=== PATIENT | male | born 1960 | race Caucasian/White ===

== ENCOUNTER 2024-04-03 12:45 | Emergency (ER) | payer OTHER, SELFPAY ==
[2024-04-03 12:52] VITALS: BP 110/77; PULSE 120; RESP 24; TEMP 37.2; O2SAT 98
--- NOTE | 2024-04-03 14:33 | ED.GENADUL_ITS ---
Discharge Plan Disposition Patient Disposition: Home Condition: Improving Discharge Details Clinical Impression: Hematuria, Inguinal hernia Primary Care Provider: Ulysses Melendrez ED Provider: Ray Godinez Home Meds and New Rx's Prescriptions: New cefpodoxime 100 mg tablet 200 mg PO BID 7 Days Qty: 28 0RF Rx Instructions: must administer with a meal/food No Action Creon 6,000-19,000 -30,000 unit capsule,delayed release(DR/EC) 1 cap PO .with meals pantoprazole [Protonix] 40 mg tablet,delayed release (DR/EC) 40 mg PO DAILY tamsulosin [Flomax] 0.4 mg capsule 0.4 mg PO QHS Discharge Instructions Instructions: Inguinal Hernia (ED), Hematuria (ED) Additional Instructions: Please follow-up with urology appointment. Please follow-up with general surgery. If you are unable to get an appointment at [facility] we will gladly arrange for follow-up. Return to the emergency department for any worsening symptoms HPI General Date/Time Provider Initiated Documentation: 04/03/24 14:01 . HPI Narrative: 63-year-old male history of recurrent hematuria and UTIs presents with worsening suprapubic discomfort hematuria passing clots difficulty urinating and persistent left inguinal hernia over the past several days. Has been on Bactrim for 5 days without improvement of urologic symptomatology. Related Data Home Medications Medication Instructions Recorded Confirmed cefpodoxime 100 mg tablet 200 mg (2 x 100 mg) PO BID 7 days 04/03/24 #28 tabs [id number] 1 cap PO .with meals 04/03/24 04/03/24 6,000-19,000-30,000 unit capsule,delayed rel (Creon) pantoprazole 40 mg tablet,delayed 40 mg PO DAILY 04/03/24 04/03/24 release (Protonix) tamsulosin 0.4 mg capsule (Flomax) 0.4 mg PO QHS 04/03/24 04/03/24 Previous Rx's Medication Instructions Recorded cefpodoxime 100 mg tablet 200 mg (2 x 100 mg) PO BID 7 days 04/03/24 #28 tabs Allergies Allergy/AdvReac Type Severity Reaction Status Date / Time No Known Allergies Allergy Verified 04/03/24 12:56 General Stated Complaint: Urinary JM: 3 Review of Systems Narrative: Review of Systems Constitutional: negative Eyes: negative ENT: negative Cardiovascular: negative Respiratory: negative Gastrointestinal: negative : Hematuria, difficulty urinating, inguinal hernia Musculoskeletal: negative Skin: negative Neurologic: negative Psych: negative Exam Narrative Exam Narrative: Physical Examination General: alert, awake, cooperative, uncomfortable appearing HEENT: normocephalic, atraumatic; PERRL, EOM intact, conjunctiva normal; no nasal discharge; moist mucous membranes, oral and pharyngeal mucosa normal, tolerating secretions Neck: supple, trachea midline; full ROM Chest: normal to inspection Respiratory: normal respiratory effort, speaking in full sentences, clear to auscultation, no wheezing, rales or rhonchi Cardiac: regular rate, regular rhythm, S1S2 intact, no murmurs rubs or gallops GI: abdomen soft, non-tender, non-distended; no palpable mass or hepatosplenomegaly : Indirect left inguinal hernia into the scrotal sac soft nontender not indurated no overlying skin changes partially reducible Skin: no lesions, rashes or trauma appreciated Neuro: AAOx3, normal speech, moving all extremities Psych: Appropriate mood and affect Course Vital Signs Vital signs: Vital Signs Temperature 37.2 C 04/03/24 12:52 Pulse 120 H 04/03/24 12:52 Respiratory Rate 24 04/03/24 12:52 Blood Pressure 110/77 04/03/24 12:52 Pulse Oximetry 98 04/03/24 12:52 Temperature 37.2 C 04/03/24 12:52 Temperature Source Temporal Artery Scan 04/03/24 12:52 Pulse 120 H 04/03/24 12:52 Respiratory Rate 24 04/03/24 12:52 Respiratory Effort Normal, Non-Labored 04/03/24 12:55 Blood Pressure 110/77 04/03/24 12:52 Blood Pressure Position Sitting 04/03/24 12:52 Pulse Oximetry 98 04/03/24 12:52 Oxygen Delivery Method Room Air 04/03/24 12:52 Oxygen Flow Rate 0 04/03/24 12:52 Pain Level 10 04/03/24 12:52 Medical Decision Making 63-year-old male history of recurrent UTIs, hematuria, left inguinal hernia presents with suprapubic fullness difficulty urinating passing blood clots now with back pressure bilaterally, afebrile nontoxic no nausea no vomiting, tachycardia likely related to pain, patient has been straining to urinate and has noticed worsening left inguinal hernia, indirect left inguinal hernia into the left hemiscrotum, soft partially reducible, patient having normal bowel movements passing gas normally no vomiting. High clinical suspicion for urinary retention in the setting of hematuria consider enlarged prostate versus bladder cancer versus prostatitis, patient has had multiple CT scans at [facility] over the last couple of weeks, will place Ennis catheter to relieve outflow obstruction, back pain likely related to hydronephrosis in the setting of chronic urinary obstruction lower suspicion for pyelonephritis. Reassessment after Ennis catheter placement if large amount of hematuria will irrigate, patient will likely be given close follow-up with urology and general surgery 16: 45 patient resting more comfortably after bladder decompression. Transition patient to cefpodoxime given nitrate positive leuk positive urine despite being on Bactrim over the past 5 days. Patient be given urologic referral to Dr. Prieto. Patient would like to follow-up at [facility] with his general surgeon regarding his hernia given strict return precautions for any worsening symptoms. Quality:SDOH Health Related Social Needs: No Data to Display PFSH All Active Problems (Updated 04/03/24 @ 16:48 by Ray Godinez MD) Inguinal hernia (Acute) Hematuria (Acute) Social History Smoking/Tobacco Use Status: Current every day Tobacco Type: cigarettes Smoking risk assessment performed?: Yes Alcohol Intake: never Drug use: Never Substance use type: does not use
[2024-04-03 14:53] LABS: Bilirubin Negative (Negative); Blood Moderate (Negative); Clarity Cloudy (Clear); Glucose Negative (Negative); Ketones 40 mg/dL (Negative); Leukocyte Esterase Large (Negative); Nitrite Positive (Negative); Urobilinogen 0.2 mg/dL (Up to 0.2); pH 6.5 (5-8)
[2024-04-03 15:01] LABS: C & S Indicated? Yes; WBC >50 HPF (0-5)
[2024-04-03] MEDS: Lidocaine 2% Jelly 6 ML SYR (15:02)
[2024-04-03 15:22] LABS: Abs Immature Grans 0.02 10^3/uL (0.0-0.06); Absolute Basophil Count 0.04 10^3/uL (0.0-0.2); Absolute Eosinophil Count 0.02 10^3/uL (0.0-0.7); Absolute Lymphocyte Count 0.72 10^3/uL (1.2-3.4); Absolute Monocyte Count 0.55 10^3/uL (0.1-0.8); Basophils % 0.5 %; Eosinophils % 0.3 %; HCT 39.5 % (40.0-50.0); HGB 13.2 g/dL (13.5-17.5); Immature Grans % 0.3 %; Lymphocytes % 9.4 %; MCH 31.1 pg (27.0-33.0); MCHC 33.4 % (32.0-36.0); MCV 93 fL (80-95); MPV 10.6 fL (8.0-11.0); Monocytes % 7.2 %; Neutrophils % 82.3 %; Platelet Count 132 10^3/uL (130-400); RBC 4.25 10^6/uL (4.36-5.78); RDW 12.5 % (11.8-14.1); RDW-SD 42.8 fL; WBC 7.65 10^3/uL (4.4-10.8)
[2024-04-03 15:38] LABS: ALT 19 U/L (16-63); AST 16 U/L (15-37); Albumin 3.2 g/dL (3.4-5.0); Alkaline Phosphatase 96 U/L (46-116); Anion Gap 10.8 mmol/L (3-11); BUN 15 mg/dL (7-18); Bilirubin, Total 0.4 mg/dL (0.2-1.0); CO2 25.2 mmol/L (21.0-32.0); Calcium 8.9 mg/dL (8.5-10.1); Chloride 102 mmol/L (98-107); Estimated GFR 84.05 (mL/min/1.73m2); Glucose 98 mg/dL (74-106); Potassium 3.9 mmol/L (3.5-5.1); Sodium 138 mmol/L (136-145); Total Protein 7.4 g/dL (6.4-8.2)
[2024-04-03] MEDS: Ketorolac 15 MG/ML VIAL IVP (15:53)
[2024-04-03] MEDS: ACETAMINOPHEN 1,000 MG/100 ML BTL 400 MG IVPB (15:53)
[2024-04-03] MEDS: Normal Saline 1,000 ML 1000 ML IV (15:54)
[2024-04-03] MEDS: Cefpodoxime 200 MG TAB PO (16:18)
--- NOTE | 2024-04-03 16:53 | NUR.NOTE ---
Referral faxed to Urology for follow up on Hematuria in about a week. Pt has a Ennis Cath in place at this time.Nursing Note:
[2024-04-03 17:06] VITALS: PULSE 67; RESP 18; TEMP 36.4; O2SAT 97
[2024-04-04 18:17] LABS: PSA, Screening 2.6 ng/mL (<=4.5)
--- NOTE | 2024-04-05 16:54 | NUR.NOTE ---
Referral sent to care management to see if the appointment with can be moved up or can a referral be sent to a different urologist. Pt mentioned Dr. Ortiz at [facility]. Nursing Note:
== END 2024-04-03 17:05 | disposition home or self-care (01) ==
LOC: ER 17:05
PROVIDERS: Emergency Provider Emergency Medicine; PCP Family Medicine
DX: R31.9 Hematuria, unspecified (principal); K40.90 Unilateral inguinal hernia, without obstruction or gangrene, not specified as recurrent; F17.210 Nicotine dependence, cigarettes, uncomplicated
CPT/HCPCS: 80053; 84153; 87077; 96365; 96375; 99284; 81003; 81015; 85025; 87086; 87186; 99283; J0131; J1885